=== PATIENT | male | born 1990 | race Caucasian/White ===

== ENCOUNTER 2017-04-06 15:59 | Emergency (ER) | payer OTHER ==
[2017-04-06 16:10] VITALS: BP 142/96
--- OUTSIDE RECORDS SUMMARY | 2017-04-06 16:20 | XMS REPORT | Continuity of Care Document ---
:1990 Author Organization [facility] ([facility]) Address [place] [address] Phone [phone] Care Team Providers Name Role Phone KenyettamendyErickson Primary Care Provider [phone] Source Comments This disclosure is being made pursuant to the Care Everywhere program, applicable federal and state laws, and may not contain all informaitonavailable regarding this patient.[facility] ([facility]) Active Allergies and Adverse Reactions Allergen Noted Date Severity Reactions Comments Penicillins Urticaria (Hives) Current Medications Not on file Active Problems Not on file Social History Tobacco Use Types Packs/Day Years Used Date Never Assessed Last Filed Vital Signs Vital Sign Reading Time Taken Blood Pressure - - Pulse - - Temperature - - Respiratory Rate - - Height 1.493 m (4' 10.77") 07/07/2003 2:15 PM CDT Weight 45.596 kg (100 lb 8.3 oz) 07/07/2003 2:15 PM CDT Body Mass Index 20.46 07/07/2003 2:15 PM CDT Oxygen Saturation - - Plan of Care Health Maintenance Due Date Last Done Comments Hepatitis B Vaccine (1 of 3 - Primary Series) 1990 HPV Vaccine (1 of 3 - Male 3 Dose Series) 2001 Tdap Vaccine 2001 Lipid Disorder Screening 2008 MMR Vaccine 2008 Td Vaccine 2008 Varicella Vaccine (1 of 2 - Adult - No Evidence of 2008 Immunity) Influenza Vaccine: Seasonal (#1) 06/04/2016 Results from Last 3 Months Not on file
--- NOTE | 2017-04-06 16:28 | ERNOTE ---
Medical Problem HPI - Narrative Date of Service: 04/06/17 - General Chief Complaint: General Assessment Time Seen by Provider: 04/06/17 16:03 Source: patient Exam Limitations: no limitations - Immun/Allergies/Home Medications Immunizations: IMMUNIZATION HX Immunizations Up to Date Yes History of Influenza Vaccine Yes Hx Pneumococcal Vaccination Yes Home Medications: HOME MEDICATIONS ARIPiprazole [Abilify] 5 mg PO DAILY #15 tablet 04/06/17 [Last Taken Unknown] Benztropine Mesylate 2 mg PO DAILY #15 tablet 04/06/17 [Last Taken Unknown] DULoxetine HCL [Cymbalta] 30 mg PO DAILY #15 capsule.sa 04/06/17 [Last Taken Unknown] Hydroxyzine HCl 50 mg PO QID PRN #40 tablet 04/06/17 [Last Taken Unknown] - History of Present History Narrative: Pt. comes in with c/o not having his psych medications for 2 months which took away his symptoms of PTSD but he stopped them two months ago when he was medically discharged and is on medical leave at home. Pt. denies any SOB, CP, NVD, fever, suicidal or homicidal ideation but has notinced he is having more times when he is on edge and becomes anxious in crowds easily. Pt. does not have any follow up planned at this time. Review of Systems - Review of Systems Constitutional: Present: no symptoms reported. Absent: recent illness, fever, chills, weakness, fatigue, malaise EYE: Present: no symptoms reported ENT: Present: no symptoms reported Respiratory: Present: no symptoms reported. Absent: shortness of breath, cough , wheezing Cardiology: Present: no symptoms reported. Absent: chest pain, palpitations, edema Gastrointestinal/Abdominal: Present: no symptoms reported. Absent: nausea, vomiting, diarrhea Musculoskeletal: Present: no symptoms reported. Absent: back pain, joint pain Neurological: Present: anxiety - not at this time All Other Systems: All systems neg except as marked - Patient's Past Medical History Patient History - Medical: Other - PTSD - Social History Smoking Status: Never smoker - Immunizations Immunizations Up to Date: Yes Hx Pneumococcal Vaccination: Yes History of Influenza Vaccine: Yes Physical Exam - Physical Exam General Appearance: Present: wd/wn, alert, no apparent distress Eye Exam: Normal inspection: bilateral, PERRL: bilateral, EOMI: bilateral Ears, Nose, Throat: Present: normal ENT inspection, normal pharynx Neck: Present: normal inspection, nontender. Absent: lymphadenopathy (R), lymphadenopathy (L) Respiratory: Present: no respiratory distress, normal breath sounds, no accessory muscle use, chest nontender, lungs clear Cardiovascular/Chest: Present: regular rate, rhythm, no murmur, normal peripheral pulses Back Exam: Present: normal inspection Extremity Exam: Present: normal inspection Neurological Exam: Present: alert, oriented, normal mood/affect, no motor/ sensory deficits, retirement assistant II-XII nml as tested, normal cerebellar test Skin Exam: Present: normal color, warm/dry. Absent: pallor, skin rash ED Progress - Date and Time Seen: Date and Time: 04/06/17 16:16 Discussed the need for pt. to contact his [facility] on Saturday for assistance in finding out if he needs to go to nearest [facility] until his discharge is complete or if he can go to [place] for follow up wnd make this appointment. Pt. educated on not stopping these medications abruptly. 04/06/17 16:26 - Results and Orders Patient's Lab Results:: I have reviewed the patient's lab results. - Vital Signs Patient's Vital Signs:: I have reviewed the patient's vital signs. Vital Signs: Vital Signs 04/06/17 16:07 Temperature 36.4 C L Pulse Rate 118 H Respiratory 16 Rate Blood Pressure 142/96 O2 Sat by Pulse 98 Oximetry - Progress/Reassessment Chief Complaint: General Assessment Progress:: Unchanged Departure - Departure Clinical Impression: PTSD (post-traumatic stress disorder) Disposition: Home self-care Condition: Good Instructions: Panic Attacks, [id number] Additional Instructions: Please call [facility] [employer] on Saturday to find out where you need to go for follow up wand follow up with them in 3-4 days. Prescriptions: ARIPiprazole [Abilify] 5 mg PO DAILY #15 tablet Benztropine Mesylate 2 mg PO DAILY #15 tablet DULoxetine HCL [Cymbalta] 30 mg PO DAILY #15 capsule.sa Hydroxyzine HCl 50 mg PO QID PRN #40 tablet PRN Reason: Anxiety
== END 2017-04-06 16:15 | disposition home or self-care (01) ==
LOC: ER 15:59
DX: F43.10 Post-traumatic stress disorder, unspecified (principal); Y37.90XA Military operations, unspecified, initial encounter